=== PATIENT | male | born 1995 | race Caucasian/White ===

== ENCOUNTER 2018-12-17 10:21 | Emergency (ER) | payer BC ==
[~2018-12-17] VITALS: Ht 177.8 cm; Wt 72.6 kg
[~2018-12-17 10:21] MED LIST: ALBU90OI6 INH; AMOX500 PO; BACPOLTO30 TP; BENZ100A PO; CEFD300; CETI1SY PO; CODGUAEL PO; FLUT110OIA IH; PROCODE120 PO; PSEU120ER PO; RXANTBENOT AU
== END 2018-12-17 11:50 | disposition home or self-care (01) ==
LOC: ER 10:21
DX: S61.217A Laceration without foreign body of left little finger without damage to nail, initial encounter (principal); W22.8XXA Striking against or struck by other objects, initial encounter
CPT/HCPCS: 12001; 73140; 90471; 90714; 99283-25

== ENCOUNTER 2025-02-17 07:17 | Day surgery (SDC) | payer OTHER ==
[~2025-02-17] VITALS: Ht 175.3 cm; Wt 74.8 kg
[2025-02-17] MEDS ORDERED: Midazolam HCL 1 MG/ML 5MLVIAL ONE (09:14)
[2025-02-17 10:27] VITALS: BP 98/68
== END 2025-02-17 11:02 | disposition home or self-care (01) ==
LOC: ORSCSDS 07:17
PROVIDERS: Internal Medicine Gastroenterology
PROC: 0DBB8ZX Excision of Ileum, Via Natural or Artificial Opening Endoscopic, Diagnostic (ICD-10-PCS; principal; 2025-02-17 08:45)
PROC: 0DBM8ZX Excision of Descending Colon, Via Natural or Artificial Opening Endoscopic, Diagnostic (ICD-10-PCS; principal; 2025-02-17 08:45)
PROC: 0DBN8ZX Excision of Sigmoid Colon, Via Natural or Artificial Opening Endoscopic, Diagnostic (ICD-10-PCS; principal; 2025-02-17 08:45)
PROC: 0DBL8ZX Excision of Transverse Colon, Via Natural or Artificial Opening Endoscopic, Diagnostic (ICD-10-PCS; principal; 2025-02-17 08:45)
PROC: 0DBP8ZX Excision of Rectum, Via Natural or Artificial Opening Endoscopic, Diagnostic (ICD-10-PCS; principal; 2025-02-17 08:45)
PROC: 0DBK8ZX Excision of Ascending Colon, Via Natural or Artificial Opening Endoscopic, Diagnostic (ICD-10-PCS; principal; 2025-02-17 08:45)
PROC: 0DBH8ZX Excision of Cecum, Via Natural or Artificial Opening Endoscopic, Diagnostic (ICD-10-PCS; principal; 2025-02-17 08:45)
DX: K62.5 Hemorrhage of anus and rectum (principal); K51.50 Left sided colitis without complications; Z87.891 Personal history of nicotine dependence
CPT/HCPCS: 88305; J2250; J2704; J7120